=== PATIENT | male | born 1930 ===

== ENCOUNTER 2020-12-05 13:40 | Emergency (ER) | payer OTHER ==
[2020-12-05] MEDS ORDERED: Bacitracin Oint 1 GM U/D Packet TOP ONE (14:23)
--- NOTE | 2020-12-05 14:23 | EDM.PDOC ---
ED HPI GENERAL MEDICAL PROBLEM - General Chief Complaint: General Stated Complaint: fall/hit head Time Seen by Provider: 12/05/20 14:00 Source of Information: Reports: Patient History Limitations: Reports: No Limitations - History of Present Illness INITIAL COMMENTS - FREE TEXT/NARRATIVE: patient was brought to the ER after a fall. 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 not on blood thinners. no LOC. no headache, weakness or numbness. Patient has a baseline slight vision problems - but not worse after the incidence. - Related Data Allergies Allergy/AdvReac Type Severity Reaction Status Date / Time Penicillins Allergy Edema Verified 12/05/20 13:50 Home Meds: Home Meds Empagliflozin [Jardiance] 1 tab PO DAILY 12/05/20 [History] Furosemide [Lasix] 40 mg PO DAILY PRN 12/05/20 [History] Rosuvastatin Calcium 10 mg PO DAILY 12/05/20 [History] amLODIPine [Norvasc] 5 mg PO DAILY 12/05/20 [History] metFORMIN [Glucophage] 1,000 mg PO QAM 12/05/20 [History] metFORMIN [Glucophage] 500 mg PO QPM 12/05/20 [History] Past Medical History HEENT History: Reports: Impaired Vision Cardiovascular History: Reports: Hypertension Respiratory History: Reports: None Gastrointestinal History: Reports: None Musculoskeletal History: Reports: Back Pain, Chronic Endocrine/Metabolic History: Reports: Diabetes, Type II Oncologic (Cancer) History: Reports: None - Past Surgical History Other Male Surgeries/Procedures: Diabetes type 2 Other Neurological Surgeries/Procedures: no radicular symptoms stated today Other Musculoskeletal Surgeries/Procedures:: B hip/ knees pain ED ROS GENERAL - Review of Systems Review Of Systems: See Below HEENT: Reports: No Symptoms Respiratory: Reports: No Symptoms Cardiovascular: Reports: No Symptoms GI/Abdominal: Reports: No Symptoms Musculoskeletal: Reports: No Symptoms Neurological: Reports: No Symptoms Psychiatric: Reports: No Symptoms ED EXAM, GENERAL - Physical Exam Exam: See Below Free Text/Narrative:: GCS 15 Exam Limited By: No Limitations General Appearance: Alert, WD/WN, No Apparent Distress Eye Exam: Bilateral Eye: EOMI, PERRL Head: Other (there a skin scrape/contusion to the scalp on the left side - no active bleeding or laceration ) Neck: Normal Inspection Respiratory/Chest: No Respiratory Distress Cardiovascular: Normal Peripheral Pulses Extremities: Normal Inspection, Normal Range of Motion Neurological: Alert, Oriented, No Motor/Sensory Deficits Course - Vital Signs Last Recorded V/S: Last Vital Signs Temp 36.9 C 12/05/20 14:23 Pulse 61 12/05/20 14:23 Resp 16 12/05/20 14:23 BP 148/57 H 12/05/20 14:23 Pulse Ox 97 12/05/20 14:23 - Orders/Labs/Meds Orders: Active Orders 24 hr Category Date Time Status Head wo Cont [CT] Stat Exams 12/05/20 14:19 Taken Meds: Medications Discontinued Medications Generic Name Dose Route Start Last Admin Trade Name Debbie PRN Reason Stop Dose Admin Bacitracin 1 dose 12/05/20 14:23 12/05/20 14:46 Bacitracin Oint 1 Gm U/D Packet TOP 12/05/20 14:24 1 dose ONETIME ONE Administration - Re-Assessments/Exams Free Text/Narrative Re-Assessment/Exam: wound was washed and cleaned CT head wo contrast - WNL. no acute findings sterile dressing was applied Departure - Departure Time of Disposition: 14:53 Disposition: Home, Self-Care 01 Condition: Good Clinical Impression: Head injury Qualifiers: Encounter type: initial encounter Qualified Code(s): S09.90XA - Unspecified injury of head, initial encounter Contusion of scalp Qualifiers: Encounter type: initial encounter Qualified Code(s): S00.03XA - Contusion of scalp, initial encounter - Discharge Information *PRESCRIPTION DRUG MONITORING PROGRAM REVIEWED*: Not Applicable *COPY OF PRESCRIPTION DRUG MONITORING REPORT IN PATIENT [place]: Not Applicable Instructions: Head Injury, Adult, Facial or Scalp Contusion, [id number] Referrals: PCP,None [Primary Care Provider] - Forms: ED Department Discharge Additional Instructions: - apply antibiotics ointment on the wound once daily - keep wound cleaned and covered - monitor any signs of wound infection - contact your PCP or return to the ER if any - return to the ER if headache, nausea or change in baseline mental status Sepsis Event Note (ED) - Focused Exam Vital Signs: Vital Signs Temp Pulse Resp BP Pulse Ox 12/05/20 14:23 36.9 C 61 16 148/57 H 97 - Problem List & Annotations (1) Head injury SNOMED Code(s): 88729369 Code(s): S09.90XA - UNSPECIFIED INJURY OF HEAD, INITIAL ENCOUNTER Status: Acute Priority: Low Current Visit: Yes Qualifiers: Encounter type: initial encounter Qualified Code(s): S09.90XA - Unspecified injury of head, initial encounter (2) Contusion of scalp SNOMED Code(s): 38725114 Code(s): S00.03XA - CONTUSION OF SCALP, INITIAL ENCOUNTER Status: Acute Priority: Low Current Visit: Yes Qualifiers: Encounter type: initial encounter Qualified Code(s): S00.03XA - Contusion of scalp, initial encounter - Problem List Review Problem List Initiated/Reviewed/Updated: Yes - My Orders Last 24 Hours: My Active Orders 12/05/20 14:19 Head wo Cont [CT] Stat - Assessment/Plan Last 24 Hours: My Active Orders 12/05/20 14:19 Head wo Cont [CT] Stat Plan: - apply antibiotics ointment on the wound once daily - keep wound cleaned and covered - monitor any signs of wound infection - contact your PCP or return to the ER if any - return to the ER if headache, nausea or change in baseline mental status
--- NOTE | 2020-12-05 18:37 | CT ---
DATE OF SERVICE: 12/05/2020 CLINICAL DATA: Head injury. UNENHANCED BRAIN CT: Comparison is made to a prior exam dated 05 May 2006. There is diffuse atrophy. There is an extra-axial CSF density structure within the left middle cranial fossa consistent with an arachnoid cyst. It is unchanged from the prior study. There are periventricular lucencies bilaterally consistent with small vessel ischemic change. No masses or mass effect. No intracranial hemorrhage. No evidence of acute or subacute infarct. No osseous abnormalities. There is a small amount of fluid in the right maxillary sinus consistent with sinus disease. [id number] [facility]
== END 2020-12-05 15:00 | disposition home or self-care (01) ==
LOC: LB.ED 13:40
DX: S00.03XA Contusion of scalp, initial encounter (principal); I10 Essential (primary) hypertension; E11.9 Type 2 diabetes mellitus without complications; Z79.84 Long term (current) use of oral hypoglycemic drugs; Z88.0 Allergy status to penicillin; W18.09XA Striking against other object with subsequent fall, initial encounter
CPT/HCPCS: 70450; 99283; 99283-25

== ENCOUNTER 2021-06-05 10:48 | Inpatient (IN) | payer OTHER, MEDICARE ==
[2021-06-05] MEDS ORDERED: Sodium Chloride 0.9% 10 ML Syringe FLUSH PRN (12:53)
[2021-06-05] MEDS ORDERED: Ketorolac 30 MG/ML SDV IVPUSH ONE (12:56)
[2021-06-05] MEDS ORDERED: Ketorolac 30 MG/ML SDV ONE (13:20)
[2021-06-05] MEDS ORDERED: Sodium Chloride 0.9% 250 ML IV ONE (14:00)
[2021-06-05] MEDS ORDERED: Sodium Chloride 0.9% 1,000 ML IV SCH (16:45)
[2021-06-05] MEDS ORDERED: Acetaminophen/oxyCODONE 325-10 MG Tab ONE (17:08)
[2021-06-05 17:12] LABS: HEMOGLOBIN A1C 7.2 % (< 5.7)
[2021-06-05] MEDS: cefTRIAXone 1 GM in Sodium Chloride 0.9% 50 ML IV SCH (18:06)
[2021-06-05] MEDS ORDERED: Glucagon,Human Recombinant 1 MG Vial IM PRN (21:45)
[2021-06-05] MEDS ORDERED: Metoprolol Tartrate 25 MG Tab PO SCH (21:45)
[2021-06-05] MEDS ORDERED: 50% Dextrose in Water 50 ML Syringe IVPUSH PRN (21:45)
[2021-06-05] MEDS ORDERED: Furosemide 40 MG Tab PO PRN (21:46)
[2021-06-05] MEDS ORDERED: FUROSEMIDE 40 MG PO PRN (22:33)
[2021-06-05] MEDS: METOPROLOL TARTRATE 25 MG PO SCH (22:40)
[2021-06-05] MEDS: Acetaminophen/oxyCODONE 325-5 MG Tab PO PRN (22:45)
[2021-06-05] MEDS ORDERED: ROSUVASTATIN 20 MG PO ONE (23:00)
[2021-06-05] MEDS ORDERED: INSULIN GLARGINE 100 UNIT/ML SUBCUT ONE (23:00)
[2021-06-05] MEDS ORDERED: METFORMIN 500 MG PO ONE (23:00)
[2021-06-06] MEDS ORDERED: Glucagon,Human Recombinant 1 MG Vial IM PRN (07:15)
[2021-06-06] MEDS ORDERED: 50% Dextrose in Water 50 ML Syringe IVPUSH PRN (07:15)
[2021-06-06] MEDS: JARDIANCE 10 MG PO SCH (07:28)
[2021-06-06] MEDS: metFORMIN 500 MG Tab PO SCH (07:30)
[2021-06-06] MEDS: INSULIN ASPART 100 UNIT/ML SUBCUT SCH ×2 (07:35→08:00)
[2021-06-06] MEDS: AMLODIPINE 5 MG PO SCH (07:59)
[2021-06-06] MEDS: Acetaminophen/oxyCODONE 325-5 MG Tab PO PRN ×2 (08:10→16:16)
[2021-06-06] MEDS ORDERED: Ondansetron 4 MG/2 ML SDV ONE (10:38)
[2021-06-06] MEDS ORDERED: Ondansetron 4 MG Tab.DIS PO PRN (10:39)
[2021-06-06] MEDS: METOPROLOL TARTRATE 25 MG PO SCH ×2 (10:50→20:00)
[2021-06-06] MEDS ORDERED: Sodium Chloride 0.9% 1,000 ML IV SCH (11:15)
[2021-06-06] MEDS ORDERED: Docusate Sodium 100 MG Cap PO PRN (12:47)
[2021-06-06] MEDS ORDERED: LORazepam 2 MG/ML SDV IVPUSH PRN (12:56)
[2021-06-06] MEDS: Orphenadrine 60 MG/2 ML Inj IV SCH ×3 (14:23→19:49)
[2021-06-06] MEDS: cefTRIAXone 1 GM in Sodium Chloride 0.9% 50 ML IV SCH (17:17)
[2021-06-06] MEDS ORDERED: metFORMIN 500 MG Tab.ER PO SCH (18:00)
[2021-06-06] MEDS ORDERED: METFORMIN 500 MG PO SCH (18:00)
[2021-06-06] MEDS ORDERED: Orphenadrine 60 MG/2 ML Inj ONE (19:42)
[2021-06-06] MEDS ORDERED: INSULIN GLARGINE 100 UNIT/ML SUBCUT SCH (20:00)
[2021-06-06] MEDS ORDERED: ROSUVASTATIN 20 MG PO SCH (20:00)
[2021-06-07] MEDS: Acetaminophen/oxyCODONE 325-5 MG Tab PO PRN ×3 (02:13→20:35)
[2021-06-07] MEDS: Orphenadrine 60 MG/2 ML Inj IV SCH ×2 (05:40→17:39)
[2021-06-07] MEDS: INSULIN ASPART 100 UNIT/ML SUBCUT SCH (09:02)
[2021-06-07] MEDS: JARDIANCE 10 MG PO SCH (09:03)
[2021-06-07] MEDS: metFORMIN 500 MG Tab PO SCH ×2 (09:04→17:13)
[2021-06-07] MEDS: METOPROLOL TARTRATE 25 MG PO SCH (09:05)
[2021-06-07] MEDS: Enoxaparin 40 MG/0.4 ML Syringe SUBCUT SCH (09:12)
[2021-06-07] MEDS: AMLODIPINE 5 MG PO SCH (09:13)
[2021-06-07] MEDS ORDERED: LORazepam 1 MG Tab PO PRN (10:26)
[2021-06-07] MEDS ORDERED: LORazepam 1 MG Tab ONE (10:28)
[2021-06-07] MEDS ORDERED: Furosemide 40 MG Tab PO PRN (11:29)
[2021-06-07] MEDS ORDERED: Ciprofloxacin in D5W 200 ML ONE (12:17)
[2021-06-07] MEDS: Ciprofloxacin in D5W 400 MG in Premix Bag 1 BAG IV SCH ×2 (12:19)
[2021-06-07] MEDS ORDERED: metFORMIN 500 MG Tab PO SCH (18:00)
[2021-06-07] MEDS ORDERED: diphenhydrAMINE 50 MG/ML SDV IVPUSH ONE (19:49)
[2021-06-07] MEDS ORDERED: diphenhydrAMINE 50 MG/ML SDV ONE (19:51)
[2021-06-07] MEDS ORDERED: INSULIN GLARGINE 100 UNIT/ML SUBCUT SCH (20:00)
[2021-06-07] MEDS: Rosuvastatin 20 MG Tab PO SCH (20:11)
[2021-06-07] MEDS: Metoprolol Tartrate 25 MG Tab PO SCH (20:18)
[2021-06-07] MEDS: LORazepam 0.5 MG Tab PO PRN (20:35)
[2021-06-08] MEDS: Ciprofloxacin in D5W 400 MG in Premix Bag 1 BAG IV SCH ×4 (00:10→11:45)
[2021-06-08] MEDS ORDERED: Ciprofloxacin in D5W 200 ML ONE ×2 (00:11→11:45)
[2021-06-08] MEDS ORDERED: Orphenadrine 60 MG/2 ML Inj ONE (02:07)
[2021-06-08] MEDS: LORazepam 0.5 MG Tab PO PRN (03:10)
[2021-06-08] MEDS: Acetaminophen/oxyCODONE 325-5 MG Tab PO PRN (04:53)
[2021-06-08] MEDS: Orphenadrine 60 MG/2 ML Inj IV SCH ×2 (05:01→06:16)
[2021-06-08] MEDS: metFORMIN 500 MG Tab PO SCH ×3 (06:14→17:23)
[2021-06-08] MEDS: amLODIPine 5 MG Tab PO SCH (07:43)
[2021-06-08] MEDS: JARDIANCE 10 MG PO SCH (07:44)
[2021-06-08] MEDS: Metoprolol Tartrate 25 MG Tab PO SCH ×2 (07:44→20:56)
[2021-06-08] MEDS: Enoxaparin 40 MG/0.4 ML Syringe SUBCUT SCH (07:44)
[2021-06-08] MEDS ORDERED: Insulin Aspart 100 Units/ML 3 ML Pen SUBCUT SCH (08:00)
[2021-06-08] MEDS ORDERED: Albuterol/Ipratropium 3.0-0.5 MG/3 ML Neb Soln NEB PRN (10:31)
[2021-06-08] MEDS: Acetaminophen 325 MG Tab PO PRN (13:07)
[2021-06-08] MEDS: Non-Formulary Medication 1 Each PO SCH ×2 (17:21→21:16)
[2021-06-08] MEDS ORDERED: Insulin Glargine,Human Rec. Analog 100 Units/ML 3 ML Pen SUBCUT SCH (20:00)
[2021-06-08] MEDS: Rosuvastatin 20 MG Tab PO SCH (20:56)
[2021-06-08] MEDS: ORPHENADRINE 100 MG PO SCH (21:16)
[2021-06-08] MEDS: Ciprofloxacin 500 MG Tab PO SCH (21:16)
[2021-06-09] MEDS: Insulin Aspart 100 Units/ML 3 ML Pen SUBCUT SCH (07:59)
[2021-06-09] MEDS: Enoxaparin 40 MG/0.4 ML Syringe SUBCUT SCH (08:03)
[2021-06-09] MEDS: metFORMIN 500 MG Tab PO SCH ×2 (08:03→18:01)
[2021-06-09] MEDS: amLODIPine 5 MG Tab PO SCH (08:04)
[2021-06-09] MEDS: Acetaminophen 325 MG Tab PO PRN (08:04)
[2021-06-09] MEDS: Ciprofloxacin 500 MG Tab PO SCH ×2 (08:05→19:54)
[2021-06-09] MEDS: Metoprolol Tartrate 25 MG Tab PO SCH ×2 (08:05→19:54)
[2021-06-09] MEDS: Non-Formulary Medication 1 Each PO SCH ×2 (08:06→19:55)
[2021-06-09] MEDS: ORPHENADRINE 100 MG PO SCH ×2 (08:06→19:55)
[2021-06-09] MEDS: JARDIANCE 10 MG PO SCH (08:06)
[2021-06-09] MEDS: Rosuvastatin 20 MG Tab PO SCH (19:54)
[2021-06-09] MEDS: Insulin Glargine,Human Rec. Analog 100 Units/ML 3 ML Pen SUBCUT SCH (19:55)
[2021-06-10] MEDS ORDERED: Glucose Gel 15 GM in 37.5 GM Tube PO ONE (08:09)
[2021-06-10] MEDS: metFORMIN 500 MG Tab PO SCH ×2 (08:19→17:18)
[2021-06-10] MEDS: Ciprofloxacin 500 MG Tab PO SCH ×2 (08:20→20:41)
[2021-06-10] MEDS: Insulin Aspart 100 Units/ML 3 ML Pen SUBCUT SCH (08:22)
[2021-06-10] MEDS: Non-Formulary Medication 1 Each PO SCH ×2 (08:22→21:52)
[2021-06-10] MEDS: amLODIPine 5 MG Tab PO SCH (08:22)
[2021-06-10] MEDS: JARDIANCE 10 MG PO SCH (08:22)
[2021-06-10] MEDS: ORPHENADRINE 100 MG PO SCH ×2 (08:22→21:51)
[2021-06-10] MEDS: Enoxaparin 40 MG/0.4 ML Syringe SUBCUT SCH (08:22)
[2021-06-10] MEDS: Metoprolol Tartrate 25 MG Tab PO SCH ×2 (08:23→20:40)
[2021-06-10] MEDS: Acetaminophen 325 MG Tab PO PRN (11:34)
[2021-06-10] MEDS: Acetaminophen 325 MG Tab PO SCH ×2 (14:01→20:39)
[2021-06-10] MEDS: Rosuvastatin 20 MG Tab PO SCH (20:41)
[2021-06-10] MEDS: Insulin Glargine,Human Rec. Analog 100 Units/ML 3 ML Pen SUBCUT SCH (20:45)
[2021-06-11] MEDS: Acetaminophen 325 MG Tab PO SCH ×4 (01:51→20:24)
[2021-06-11] MEDS ORDERED: metFORMIN 1,000 MG Tab ONE ×2 (07:56→07:59)
[2021-06-11] MEDS: metFORMIN 500 MG Tab PO SCH ×2 (07:59→17:08)
[2021-06-11] MEDS: Ciprofloxacin 500 MG Tab PO SCH ×2 (08:00→20:24)
[2021-06-11] MEDS: Enoxaparin 40 MG/0.4 ML Syringe SUBCUT SCH (08:00)
[2021-06-11] MEDS: amLODIPine 5 MG Tab PO SCH (08:05)
[2021-06-11] MEDS: Metoprolol Tartrate 25 MG Tab PO SCH ×2 (08:06→20:24)
[2021-06-11] MEDS: JARDIANCE 10 MG PO SCH (08:07)
[2021-06-11] MEDS: Non-Formulary Medication 1 Each PO SCH ×2 (08:08→20:25)
[2021-06-11] MEDS: ORPHENADRINE 100 MG PO SCH ×2 (08:11→21:08)
[2021-06-11] MEDS: Insulin Aspart 100 Units/ML 3 ML Pen SUBCUT SCH (08:12)
[2021-06-11 12:52] LABS: HEMOGLOBIN A1C 7.2 % (< 5.7)
[2021-06-11] MEDS: Rosuvastatin 20 MG Tab PO SCH (20:23)
[2021-06-11] MEDS: Insulin Glargine,Human Rec. Analog 100 Units/ML 3 ML Pen SUBCUT SCH (20:25)
[2021-06-12] MEDS: Acetaminophen 325 MG Tab PO SCH ×3 (01:31→07:53)
[2021-06-12] MEDS: Ciprofloxacin 500 MG Tab PO SCH (07:53)
[2021-06-12] MEDS: Metoprolol Tartrate 25 MG Tab PO SCH (07:54)
[2021-06-12] MEDS: amLODIPine 5 MG Tab PO SCH (07:55)
[2021-06-12] MEDS: Enoxaparin 40 MG/0.4 ML Syringe SUBCUT SCH (07:57)
[2021-06-12] MEDS: metFORMIN 500 MG Tab PO SCH (07:57)
[2021-06-12] MEDS: JARDIANCE 10 MG PO SCH (07:59)
[2021-06-12] MEDS: ORPHENADRINE 100 MG PO SCH (08:00)
[2021-06-12] MEDS: Non-Formulary Medication 1 Each PO SCH (08:00)
[2021-06-12] MEDS: Insulin Aspart 100 Units/ML 3 ML Pen SUBCUT SCH (08:02)
[2021-06-12] MEDS: Acetaminophen/oxyCODONE 325-5 MG Tab PO PRN (13:29)
== END 2021-06-12 11:16 | disposition home or self-care (01) | DRG 312 ==
LOC: LB.ED 10:48 → LB.MS 16:38 → OBSVTOIN 06-06 12:47
PROVIDERS: ADMIT Physician Assistant; ATTEND Physician Assistant
DX: R55 Syncope and collapse (principal); D72.828 Other elevated white blood cell count; M54.42 Lumbago with sciatica, left side; L08.9 Local infection of the skin and subcutaneous tissue, unspecified; N48.22 Cellulitis of corpus cavernosum and penis; N41.9 Inflammatory disease of prostate, unspecified; I95.9 Hypotension, unspecified; E11.649 Type 2 diabetes mellitus with hypoglycemia without coma; E11.9 Type 2 diabetes mellitus without complications; H54.7 Unspecified visual loss; G89.29 Other chronic pain; M54.9 Dorsalgia, unspecified; R53.1 Weakness; Z20.822 Contact with and (suspected) exposure to COVID-19; S79.911A Unspecified injury of right hip, initial encounter; I12.9 Hypertensive chronic kidney disease with stage 1 through stage 4 chronic kidney disease, or unspecified chronic kidney disease; W19.XXXA Unspecified fall, initial encounter; Y92.009 Unspecified place in unspecified non-institutional (private) residence as the place of occurrence of the external cause; Z88.0 Allergy status to penicillin; Z79.899 Other long term (current) drug therapy; Z79.4 Long term (current) use of insulin; N18.9 Chronic kidney disease, unspecified
CPT/HCPCS: 36415; 70450; 71045; 72131; 74176; 80048; 80053; 81001; 82947; 83036; 83605; 84484; 85025; 87040; 87086; 93005; 96374; 96375; 97161-GP; 97165-GO; 97530-GO; 99222; 99231; 99232; 99238; 99285-25; A0425; A0429; A9270-GY; G0378; J0696; J0744; J1650; J1815-GY; J1885; J2360; J3370; J7030; J7050; J7620-GY; Q0162; U0002

== ENCOUNTER 2021-07-11 21:05 | Emergency (ER) | payer MEDICARE, OTHER ==
[2021-07-11] MEDS ORDERED: traMADol 50 MG Tab ONE (21:30)
[2021-07-11] MEDS: Acetaminophen/HYDROcodone 325-5 MG Tab PO ONE (21:37)
== END 2021-07-11 21:52 | disposition home or self-care (01) ==
LOC: LB.ED 21:05
DX: M46.1 Sacroiliitis, not elsewhere classified (principal); E11.9 Type 2 diabetes mellitus without complications; I10 Essential (primary) hypertension; Z88.0 Allergy status to penicillin; Z79.4 Long term (current) use of insulin; Z79.899 Other long term (current) drug therapy
CPT/HCPCS: 99283; A9270

== ENCOUNTER 2021-11-09 18:50 | Emergency (ER) | payer OTHER, MEDICARE ==
[2021-11-09] MEDS ORDERED: traMADol 50 MG Tab ONE (20:00)
[2021-11-09] MEDS ORDERED: Ketorolac 30 MG/ML SDV IVPUSH ONE (20:05)
[2021-11-09] MEDS ORDERED: Ketorolac 30 MG/ML SDV ONE (20:10)
== END 2021-11-09 20:10 | disposition home or self-care (01) ==
LOC: LB.ED 18:50
DX: S80.01XA Contusion of right knee, initial encounter (principal); E11.9 Type 2 diabetes mellitus without complications; E78.00 Pure hypercholesterolemia, unspecified; Z88.0 Allergy status to penicillin; Z79.4 Long term (current) use of insulin; Z79.899 Other long term (current) drug therapy; Z87.891 Personal history of nicotine dependence; W01.0XXA Fall on same level from slipping, tripping and stumbling without subsequent striking against object, initial encounter
CPT/HCPCS: 73562; 96374; 99283; A9270; J1885; 99281